=== PATIENT | male | born 1975 ===

== ENCOUNTER 2022-11-29 18:53 | Outpatient (REF) | payer MEDICAID, SELFPAY ==
[2022-11-29 21:17] LABS: HCT 42.8 % (40.0-50.0); HGB 14.4 g/dL (13.5-17.5); MCHC 33.6 % (32.0-36.0); MCV 98 fL (80-95); MPV 9.7 fL (8.0-11.0); Platelet Count 277 10^3/uL (130-400); RBC 4.36 10^6/uL (4.36-5.78); RDW-SD 47.2 fL; WBC 7.34 10^3/uL (4.4-10.8)
[2022-11-29 21:43] LABS: ALT 37 U/L (16-63); AST 24 U/L (15-37); Albumin 4.1 g/dL (3.4-5.0); Alkaline Phosphatase 70 U/L (46-116); Anion Gap 11.3 mmol/L (3-11); BUN 17 mg/dL (7-18); Bilirubin, Total 0.2 mg/dL (0.2-1.0); CO2 26.7 mmol/L (21.0-32.0); CREATININE 1.3 mg/dL (0.70-1.30); Calcium 9.6 mg/dL (8.5-10.1); Chloride 103 mmol/L (98-107); Cholesterol 337 mg/dL (<200); Estimated GFR 68.19 (mL/min/1.73m2); Ferritin 282 ng/mL (26-388); Glucose 107 mg/dL (74-106); HDL Cholesterol 44 mg/dL (40-60); Sodium 141 mmol/L (136-145); TSH 2.14 uIU/mL (0.36-3.74); Total Protein 7.8 g/dL (6.4-8.2); Triglyceride 487 mg/dL (<150)
[2022-11-29 22:07] LABS: LDL CHOLESTEROL 199 mg/dL (<100)
[2022-12-01 11:09] LABS: HIV-1/2 Ag & Ab Screen Negative (Negative)
== END 2022-11-29 18:54 | disposition home or self-care (01) ==
LOC: NCHCN 18:53
PROVIDERS: Visit Provider Family Medicine
DX: Z00.00 Encounter for general adult medical examination without abnormal findings (principal)
CPT/HCPCS: 80053; 80061; 83721; 85027; 87389; 82728; 84443

== ENCOUNTER 2022-12-01 19:41 | Outpatient (REF) | payer MEDICAID, SELFPAY ==
[2022-12-02 14:34] LABS: Chlamydia Result Negative (Negative); GC Result Negative (Negative)
== END 2022-12-01 19:42 | disposition home or self-care (01) ==
LOC: NCHCN 19:41
PROVIDERS: Visit Provider Family Medicine
DX: Z11.3 Encounter for screening for infections with a predominantly sexual mode of transmission (principal)
CPT/HCPCS: 87491; 87591